=== PATIENT | male | born 1975 ===

== ENCOUNTER 2017-08-14 15:39 | Emergency (ER) ==
[2017-08-14] MEDS: TETRACAINE 0.5% OPHTH SOLN 4ML OD (19:15)
[2017-08-14] MEDS: FLUORESCEIN OPHTH 1 MG STRIP OD (19:15)
== END 2017-08-14 20:23 | disposition home or self-care (01) ==
LOC: M ED 15:39
DX: S05.01XA Injury of conjunctiva and corneal abrasion without foreign body, right eye, initial encounter (principal); X58.XXXA Exposure to other specified factors, initial encounter; Y92.9 Unspecified place or not applicable; Y93.01 Activity, walking, marching and hiking; Z88.0 Allergy status to penicillin
CPT/HCPCS: 99283